=== PATIENT | male | born 2000 | race Caucasian/White ===

== ENCOUNTER 2020-06-22 06:24 | Emergency (ER) | payer OTHER ==
[~2020-06-22] VITALS: Ht 193 cm; Wt 68.0 kg
[2020-06-22] MEDS ORDERED: ARIP10TA17 (06:37)
--- NOTE | 2020-06-22 07:14 | ED Headache ---
General Chief Complaint: Head/Cervical Problems Stated Complaint: HEAD PAIN / ANXIETY Nursing Triage Note: INTERMITTANT HEADACHE/EPITAXIS SINCE TUESDAY. Nursing Sepsis Screen: No Definite Risk Source: patient Exam Limitations: no limitations (JULIANN MATHIAS) History of Present Illness Date Seen by Provider: Jun 22, 2020 Time Seen by Provider: 06:50 Initial Comments Pt here for a headache that started about a week ago described as intense pressure in the top of his head as well as pain in his neck. He states he recently started taking aripiprazole 06/12/20 for Bipolar disorder, and thinks it may be related to the medication. He states that on Tuesday the second day of the headache the pain was bad enough he did vomit. He states that prior to starting this new medication he did not ahve high blood pressure but has noticed an increase in his BP since starting aripiprazole. He reports trying Ibuprofen that has helped only a little, and that when he was using his vape it was made worse. He has seen some mental health providers in the past, but states the one he is currently seeing does not think it is bipolar but anxiety, OCD, and a high IQ all coming together to create his symptoms. He is also currently taking Zoloft which he states is definitely starting to help. He has concerns about having Marfan's syndrome due to his height being 6'4" with his parents not being over 6 foot, along with long arms, high foot arches, high arched palate, and high arched head. He states that he came in today because he got worried he might be having a brain aneurysm related to his possible Marfan syndrome and wanted to be sure. He states he does have an appointment with Mental Health at [facility] in june for his both medication provider as well as starting therapy. He is highly anxious and talks at a rapid pace, but with a clear thought path not appearing manic at this time. He also has concerns about getting multiple bloody noses recently, but states he has had them in the past during the winter months however not as frequent as recently. Timing/Duration: 1 week Severity/Quality: mild, moderate Location: other (top of head and posterior neck) Modifying Factors: improves with other (Vaping makes it worse) Associated Symptoms: No fever/chills; nausea/vomiting; No nasal congestion (JULIANN MATHIAS) Timing/Duration: 1 week Severity/Quality: mild, moderate Location: occipital, other (top of head and posterior neck) Associated Symptoms: No fever/chills; nasal congestion, nasal drainage; No stiff neck, No weakness (MAC DIAZ MD) Allergies and Home Medications Allergies Coded Allergies: No Known Drug Allergies (Unverified , 06/22/20) Patient Home Medication List Home Medication List Reviewed: Yes (MAC DIAZ MD) Review of Systems Review of Systems Constitutional: No chills, No dizziness, No fever Eyes: Blurred Vision (Chronic 2/2 cataract); Denies Photophobia, Denies Vision Changes Ears, Nose, Mouth, Throat: denies ear pain, denies nose pain; epistaxis; denies throat pain Respiratory: No cough, No short of breath Cardiovascular: No chest pain, No palpitations Gastrointestinal: No abdominal pain; constipation; No diarrhea; nausea, vomiting Genitourinary: No dysuria; frequency; No hematuria Musculoskeletal: No back pain; neck pain Skin: No pruritus, No rash Psychiatric/Neurological: Anxiety, Depressed, Emotional Problems, Headache; Denies Numbness, Denies Tingling (JULIANN MATHIAS) All Other Systems Reviewed Negative Unless Noted: Yes (MAC DIAZ MD) Past Vnafkkp-Rmfncd-Tgbmle Hx Past Med/Social Hx: Reviewed Nursing Past Med/Soc Hx (MAC DIAZ MD) Patient Social History Alcohol Use: Denies Use Drug of Choice: CANNIBUS Smoking Status: Former Smoker Type Used: Electronic/Vapor 2nd Hand Smoke Exposure: Yes Recent Infectious Disease Expo: No Recent Hopitalizations: No (JULIANN MATHIAS) Immunizations Up To Date Tetanus Booster (TDap): Unknown (JULIANN MATHIAS) Seasonal Allergies Seasonal Allergies: No (JULAINN MATHIAS) Past Medical History Surgeries: No Respiratory: No Cardiac: No Neurological: Yes Headaches /Migraines Genitourinary: No Gastrointestinal: No Musculoskeletal: No Endocrine: No HEENT: No Cancer: No Psychosocial: Yes (OCD) Anxiety, Bipolar, Depression Integumentary: No Blood Disorders: No (JULIANN MATHIAS) Family Medical History Reviewed Nursing Family Hx (MAC DIAZ MD) Physical Exam Vital Signs Vital Signs - First Documented 2/21/21 06:33 Temp 36.6 Pulse 73 Resp 20 B/P (MAP) 139/106 (117) Pulse Ox 98 O2 Delivery Room Air (MAC DIAZ MD) Vital Signs Capillary Refill : Less Than 3 Seconds (JULIANN MATHIAS [facility]) Height, Weight, BMI Height: '" Weight: lbs. oz. kg; 18.00 BMI Method: General Appearance: WD/WN, no apparent distress HEENT: PERRL/EOMI, TMs normal, pharynx normal, other (Right nasal erythema) Neck: non-tender, full range of motion, supple, normal inspection Cardiovascular: normal peripheral pulses, regular rate, rhythm, no murmur Respiratory: chest non-tender, lungs clear, normal breath sounds Gastrointestinal: non tender, soft Back: normal inspection, no CVA tenderness, no vertebral tenderness Extremities: normal range of motion, non-tender, normal inspection, no pedal edema, no calf tenderness Psychiatric: alert, oriented x 3, other (Anxious with rapid speech) Crainal Nerves: normal hearing, normal speech, PERRL Motor/Sensory: no motor deficit, no sensory deficit, no pronator drift Skin: normal color, warm/dry (JULIANN MATHIAS) General Appearance: WD/WN, no apparent distress, other (Mildly anxious) HEENT: PERRL/EOMI, TMs normal, pharynx normal, other (Right nasal erythema with some purulent drainage. Tender to right frontal sinus area.) Cardiovascular: regular rate, rhythm, no murmur Respiratory: lungs clear, normal breath sounds Gastrointestinal: non tender, soft Psychiatric: alert, oriented x 3 Crainal Nerves: normal hearing, normal speech, PERRL Coordination/Gait: normal gait Motor/Sensory: no motor deficit, no sensory deficit Skin: normal color, warm/dry (MAC DIAZ MD) Progress/Results/Core Measures Results/Orders My Orders Orders - MAC DIAZ MD Ketorolac Injection (Toradol Injection) (06/22/20 07:24) Orphenadrine Inj (Ed Only) (Norflex Inje (06/22/20 07:24) (MAC DIAZ MD) Vital Signs/I&O 06/22/20 06:33 Temp 36.6 Pulse 73 Resp 20 B/P (MAP) 139/106 (117) Pulse Ox 98 O2 Delivery Room Air (MAC DIAZ MD) Blood Pressure Mean: 117 Progress Progress Note : Progress Note 07: discussed some of the patients concerns, pt states he has stopped taking the aripiprazole since Tuesday and the symptoms have improved, advised to discontinue aripiprazole, ordered muscle relaxer, Hydroxyzine, and Amoxicillin. (JULIANN MATHIAS) Progress Note : Progress Note I have seen and evaluated the patient and agree with above except as indicated. I have directed the plan of care. Patient is here with complaint of headache and nosebleeds. Also admits anxiety. Recently on aripiprazole but stopped that due to headaches. States he had episode of dizziness earlier this week that was associated with numbness around the mouth and of the hands. He thinks he was having a panic attack at that time. We did discuss hyperventilation and he states the symptoms matched perfectly. Was seen earlier this week and did get shot of Toradol and Benadryl which did help his headache. He is not on anything other than Zoloft for anxiety. Is taking the Zoloft as directed. Does report a week of intermittent nosebleeds and some right frontal facial pain. Denies fever chills. States ibuprofen was helping but he stopped that due to concerns about heart risk related to concerns about Marfan syndrome and has been taking acetaminophen instead. That is not working as well. Denies nausea or vomiting currently. Overall less anxious now after conversation with medical student earlier and conversation now. Evaluation as above. Findings do suggest possible right-sided sinusitis and symptomology also suggest muscle tension headache with the neck pain occasionally and tightness over the scalp to the top of the head. Patient was in agreement. We did discuss CT scan versus hold and patient would like to hold at this point and I think that is the most reasonable approach currently. We will go ahead and give Toradol 60 mg IM and Norflex 60 mg IM. I will treat him for possible sinusitis outpatient with amoxicillin as well as prescribed hydroxyzine for anxiety. Patient states that he has not slept much this week due to his anxiousness. He has multiple follow-ups with his doctor and will discuss Marfan's with his primary care doctor and continue discussion regarding anxiety and possible bipolar with the mental health providers as well. Discharged home with return precautions. Patient verbalized understanding of instructions and agreement with plan. (MAC DIAZ MD) Departure Impression Primary Impression: Tension type headache Qualified Codes: G44.209 - Tension-type headache, unspecified, not intractable Additional Impressions: Acute sinusitis Qualified Codes: J01.10 - Acute frontal sinusitis, unspecified Anxiety Disposition: HOME, SELF-CARE Condition: Improved Departure-Patient Inst. Decision time for Depature: 07:39 (MAC DIAZ MD) Referrals: NO,LOCAL PHYSICIAN (PCP/Family) Primary Care Physician Patient Instructions: Sinusitis, Adult (DC), Tension Headache (DC), Anxiety, Adult ED Add. Discharge Instructions: All discharge instructions reviewed with patient and/or family. Voiced unders tanding. Take medications as directed. Follow-up with your doctor this week for recheck and further evaluation. You may take ibuprofen 600 mg every 8 hours as needed for pain. You may take Tylenol/acetaminophen 1000 mg every 8 hours as needed for pain. You may use [id number] Afrin nasal spray or the generic, 12- hour relief, 2 sprays to each nostril twice daily for 3 days only and then stop. Do not use more than 3 days. Return for worse pain, fever, vomiting, weakness, breathing problems, vision or balance problems or other concerns as needed. Scripts Hydroxyzine HCl (Hydroxyzine HCl) 50 Mg Tablet 50 MG PO Q6H PRN for ANXIETY, #20 TAB 0 Refills Prov: MAC DIAZ MD 06/22/20 Amoxicillin (Amoxicillin) 500 Mg Capsule 1000 MG PO TID, #42 CAP 0 Refills Prov: MAC DIAZ MD 06/22/20 JULIANN MATHIAS [facility] Jun 22, 2020 07:14 MAC DIAZ MD Jun 22, 2020 07:32
[2020-06-22] MEDS ORDERED: KETOROLAC 60 MG/2 ML VIAL IM STA (07:24)
[2020-06-22] MEDS ORDERED: ORPHENADRINE 60 MG/2 ML (NORFLEX) AMP (ED ONLY) IM STA (07:24)
[2020-06-22] MEDS ORDERED: AMOX500C2 PO (07:43)
[2020-06-22] MEDS ORDERED: HYDR50TA76 PO (07:43)
[2020-06-22 07:45] VITALS: BP 139/106
== END 2020-06-22 07:45 | disposition home or self-care (01) ==
LOC: ER 06:28
DX: G44.209 Tension-type headache, unspecified, not intractable (principal); J01.90 Acute sinusitis, unspecified; F41.9 Anxiety disorder, unspecified; Z87.891 Personal history of nicotine dependence
CPT/HCPCS: 99284